=== PATIENT | female | born 1985 | race Caucasian/White ===

== ENCOUNTER → 2016-12-20 | Outpatient (CLI) | payer OTHER ==
[~2016-12-20] MED LIST: No Medications; REME30TA PO
--- NOTE | 2016-12-20 15:56 | REP ---
ULTRASOUND LEFT UPPER QUADRANT: Real-time sonographic evaluation of the left upper quadrant is performed. The spleen is normal in size with a length of 9.8 cm with no intrinsic abnormality. Left kidney demonstrates no hydronephrosis with normal size measuring 9.4 x 4.6 x 3.2 cm. No gross renal mass or stone is seen although visualization is limited due to overlying bowel. No free fluid is seen in the left upper quadrant. IMPRESSION: Essentially negative left upper quadrant ultrasound. Signed by Ross Evans MD 12/20/2016 05:27 P
== END ==
LOC: M LRY 14:04
PROVIDERS: ATTEND Physician Assistant
DX: R10.12 Left upper quadrant pain (principal)

== ENCOUNTER → 2017-05-31 | Outpatient (REF) | payer OTHER ==
[2017-05-31 17:29] LABS: BASO # 0.1 10^3/uL (0.0-0.2); BASO % 0.7 % (0.0-1.0); EOS # 0.4 10^3/uL (0.0-0.50); EOS % 5.6 % (0.0-3.0); IMMATURE GRANULOCYTE % 0.1 % (0-0); LYMPH # 3.1 10^3/uL (1.5-4.5); LYMPH % 44.6 % (24.0-44.0); MEAN CORPUSCULAR HGB CONC 33.3 g/dl (32.0-36.5); MEAN CORPUSCULAR VOLUME 93.1 fl (80.0-96.0); MONO # 0.4 10^3/uL (0.0-0.8); MONO % 5.5 % (0.0-5.0); NEUTROPHILS % 43.5 % (36.0-66.0); PLATELET COUNT, AUTOMATED 236 10^3/uL (150-450); RED CELL DISTRIBUTION WIDTH 11.9 % (11.5-14.5); WHITE BLOOD COUNT 6.9 10^3/uL (4.0-10.0)
[2017-05-31 17:34] LABS: ADD MORPHOLOGY? NO
[2017-05-31 18:01] LABS: ALBUMIN 3.9 GM/DL (3.2-5.2); ALKALINE PHOSPHATASE 39 U/L (45-117); ALT/SGPT 22 U/L (12-78); ANION GAP 4 MEQ/L (8-16); AST/SGOT 16 U/L (15-37); BILIRUBIN,TOTAL 0.4 MG/DL (0.2-1.0); BLOOD UREA NITROGEN 11 MG/DL (7-18); CALCIUM LEVEL 8.5 MG/DL (8.5-10.1); CARBON DIOXIDE LEVEL 29 MEQ/L (21-32); CHLORIDE LEVEL 108 MEQ/L (98-107); CREATININE FOR GFR 0.72 MG/DL (0.55-1.02); GLOMERULAR FILTRATION RATE > 60.0 (>60); GLUCOSE, FASTING 75 MG/DL (70-105); POTASSIUM SERUM 4.2 MEQ/L (3.5-5.1); SODIUM LEVEL 141 MEQ/L (136-145); TOTAL PROTEIN 6.9 GM/DL (6.4-8.2)
== END ==
LOC: M SFHCLERA 14:58
PROVIDERS: ATTEND Nurse Practitioner Family
DX: R35.1 Nocturia (principal)

== ENCOUNTER → 2018-03-12 | Outpatient (REF) | payer OTHER | LOC: M SFHCLERA 11:34 | DX: J02.9 Acute pharyngitis, unspecified (principal) ==

== ENCOUNTER → 2018-06-30 | Outpatient (REF) | payer OTHER, SELFPAY ==
[2018-07-04 00:07] LABS: Lyme Disease IgG/IgM Antibodie <0.91 ISR (0.00-0.90); Lyme Disease IgM Ab Quantitati <0.80 index (0.00-0.79)
== END ==
LOC: M SFHCLERA 17:21
DX: R21 Rash and other nonspecific skin eruption (principal)
CPT/HCPCS: 86617

== ENCOUNTER → 2018-06-30 | Outpatient (CLI) | payer OTHER | LOC: M LRY 16:43 | DX: M25.542 Pain in joints of left hand (principal) | CPT/HCPCS: 73130 ==

== ENCOUNTER → 2019-06-30 | Outpatient (REF) | payer OTHER | LOC: M SFHCLERA 16:27 | PROVIDERS: ATTEND Physician Assistant | DX: J02.9 Acute pharyngitis, unspecified (principal) ==

== ENCOUNTER → 2025-04-08 | Outpatient (CLI) | payer BC ==
[~2025-04-08] MED LIST changes: +MIRT-89 PO; -REME30TA PO
[2025-04-08 16:42] LABS: BASO # 0.1 10^3/uL (0.0-0.2); BASO % 0.7 % (0.0-1.0); EOS # 0.3 10^3/uL (0.0-0.5); EOS % 3.1 % (0.0-3.0); LYMPH # 3.4 10^3/uL (1.5-5.0); LYMPH % 38.2 % (24.0-44.0); MONO # 0.5 10^3/uL (0.0-0.8); MONO % 5.5 % (2.0-8.0); NEUTROPHILS # 4.6 10^3/uL (1.5-8.5); NEUTROPHILS % 52.3 % (36.0-66.0); PLATELET COUNT, AUTOMATED 304 10^3/uL (150-450)
[2025-04-08 16:46] LABS: APPEARANCE, URINE HAZY (CLEAR); BACTERIA, URINE AUTO NEGATIVE (NEGATIVE); BILIRUBIN, URINE AUTO NEGATIVE (NEGATIVE); BLOOD, URINE BLOOD 1+ (NEGATIVE); GLUCOSE, URINE (UA) AUTO NEGATIVE (NEGATIVE); KETONE, URINE AUTO 1+ mg/dL (NEGATIVE); LEUKOCYTE ESTERASE, URINE AUTO 1+ (NEGATIVE); MUCUS, URINE SMALL (NEGATIVE); NITRITE, URINE AUTO NEGATIVE (NEGATIVE); PROTEIN, URINE AUTO NEGATIVE (NEGATIVE); RBC, URINE AUTO 1 /HPF (0-3); SPECIFIC GRAVITY URINE AUTO 1.021 (1.002-1.035); SQUAMOUS EPITHELIAL CELL UR AU 7 /HPF (0-6); UROBILINOGEN, URINE AUTO 0.2 mg/dL (0.0-2.0); WBC, URINE AUTO 3 /HPF (0-3)
[2025-04-08 16:58] LABS: ESTIMATED AVERAGE GLUCOSE 80.0 MG/DL (60-110)
[2025-04-08 17:08] LABS: CREATININE, URINE 156.1 MG/DL; MALB URINE SIEMENS < 3.0 MG/L
[2025-04-08 17:09] LABS: IRON (FE) 149 UG/DL (50-170); PERCENT SATURATION 52.1 % (13.2-45.0)
[2025-04-08 17:10] LABS: ALT/SGPT 15 U/L (7.0-40); AST/SGOT 20 U/L (<34); CALCIUM LEVEL 9.1 MG/DL (8.5-10.1); CARBON DIOXIDE LEVEL 25 MMOL/L (20-31); CHLORIDE LEVEL 108 MMOL/L (98-107); CHOLESTEROL LEVEL 178 MG/DL (<200); CHOLESTEROL RISK RATIO 2.19 (<5); CREATININE FOR GFR 0.83 MG/DL (0.55-1.30); GLOMERULAR FILTRATION RATE > 90.0 (>60); LDL CHOLESTEROL 80.6 MG/DL (<100); NON-HDL-C 97.0 MG/DL; POTASSIUM SERUM 4.1 MMOL/L (3.5-5.1); SODIUM LEVEL 143 MMOL/L (136-145); TRIGLYCERIDES LEVEL 82 MG/DL (<150)
[2025-04-08 17:11] LABS: FREE T4 1.13 NG/DL (0.89-1.76)
[2025-04-14 16:08] LABS: URINE METANEPHR/CREAT RATIO 0.3 (0.0-1.0); URINE METANEPHRINES RANDOM 129.0 ug/L (Undefined); URINE NORMETANEPHRINES RANDOM 233.0 ug/L (Undefined)
[2025-04-15 20:35] LABS: ALDOS/RENIN RATIO 4.7 Ratio (0.9-28.9); ALDOSTERONE LC 6.0 ng/dL (see note); RENIN ACTIVITY 1.27 ng/mL/h (0.25-5.82)
== END ==
LOC: M LAB 15:50
PROVIDERS: ATTEND Internal Medicine
DX: I10 Essential (primary) hypertension (principal); R53.83 Other fatigue

== ENCOUNTER → 2025-05-12 | Outpatient (CLI) | payer BC | LOC: M RAD 07:44 | PROVIDERS: ATTEND Internal Medicine | DX: I10 Essential (primary) hypertension (principal) ==